=== PATIENT | male | born 1965 | race African-American/Black ===

== ENCOUNTER 2018-01-13 09:22 | Day surgery (SDC) | payer BC ==
[2018-01-13] MEDS ORDERED: GENTAMICIN 100 MG/100 ML BAG 100 MG/100 ML BAG IV ONE (10:43)
[2018-01-13] MEDS ORDERED: Ringers Lactate 1,000 ML IV ONE (10:43)
[2018-01-13] MEDS ORDERED: ONDANSETRON HCL 40 MG/20 ML VIAL ONE (11:57)
[2018-01-13] MEDS ORDERED: LIDOCAINE 2% MPF 5 ML VIAL ONE (11:57)
[2018-01-13] MEDS ORDERED: FENTANYL CITR 100 MCG/2 ML ONE (11:57)
[2018-01-13] MEDS ORDERED: MIDAZOLAM HCL 2 MG/2 ML INJ ONE (11:57)
[2018-01-13] MEDS ORDERED: PROPOFOL 200 MG/20 ML VIAL IV ONE (11:57)
--- NOTE | 2018-01-13 12:59 | EKG ---
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
[2018-01-13] MEDS ORDERED: TRAMADOL HCL 50 MG TAB ONE (14:05)
[2018-01-13] MEDS ORDERED: LABETALOL HCL 100 MG/20 ML ONE (15:10)
== END 2018-01-13 15:45 | disposition home or self-care (01) ==
LOC: OR 09:22
PROVIDERS: ATTEND Urology
PROC: 0TF4XZZ Fragmentation in Left Kidney Pelvis, External Approach (ICD-10-PCS; principal; 2018-01-13 12:45)
DX: N20.2 Calculus of kidney with calculus of ureter (principal); F17.200 Nicotine dependence, unspecified, uncomplicated; Z88.6 Allergy status to analgesic agent
CPT/HCPCS: 50590; 93005; J1580; J2250; J2405; J3010

== ENCOUNTER 2018-02-03 08:00 | Day surgery (SDC) | payer BC ==
[2018-02-03 08:54] LABS: Urine Appearance CLEAR; Urine Bilirubin NEGATIVE (NEG); Urine Blood NEGATIVE (NEG); Urine Color YELLOW; Urine Glucose NEGATIVE (NEG); Urine Microscopic Reflex NO UMIC; Urine Protein NEGATIVE (NEG); Urine Urobilinogen 0.2 mg/dL (0.2-1.0); Urine pH 5.5 (5.0-7.0)
[2018-02-03 08:57] LABS: Absolute Lymphocytes (CBC) 1.8 K/uL (0.7-4.9); Absolute Monocytes 0.5 K/uL (0.1-1.3); Absolute Neutrophil 4.1 K/uL (1.8-8.0); Eosinophils % 2.7 % (0-4.4); Lymphocytes % 26.7 % (15.3-44.8); MCV 87.9 fL (80-100); MPV 8.5 fL (7.6-11.3); RBC Red Blood Cell Count 4.89 M/uL (4.33-5.43)
[2018-02-03] MEDS ORDERED: Ringers Lactate 1,000 ML IV ONE (08:59)
[2018-02-03 09:00] LABS: Protime INR 0.97
--- NOTE | 2018-02-03 09:04 | RAD REPORT ---
EXAM DESCRIPTION: RAD - Chest Pa And Lat (2 Views) - 02/03/2018 8:55 am CLINICAL HISTORY: Preop for surgery Chest pain. COMPARISON: Abdomen 1 View (KUB) dated 01/29/2018; Abdomen 1 View (KUB) dated 01/12/2018; Chest Pa An d Lat (2 Views) dated 01/12/2018 FINDINGS: The lungs are clear. The heart is normal in size. No displaced fractures. IMPRESSION: No acute or concerning finding suspected.
--- NOTE | 2018-02-03 09:09 | RAD REPORT ---
EXAM DESCRIPTION: RAD - Abdomen 1 View (KUB) - 02/03/2018 9:01 am CLINICAL HISTORY: Preop for surgery Pain COMPARISON: Abdomen 1 View (KUB) dated 01/29/2018; Abdomen 1 View (KUB) dated 01/12/2018 FINDINGS: The bowel gas pattern is non-obstructive. No evidence of free air or pneumatosis. Small ro unded calculus projecting to the left of the L4-5 level appears unchanged.
[2018-02-03] MEDS: GENTAMICIN 100 MG/100 ML BAG 100 MG/100 ML BAG IV ONE ×2 (09:33→10:37)
[2018-02-03 09:37] LABS: BUN Blood Urea Nitrogen 15 mg/dL (7-18); Bicarbonate 30 mmol/L (21-32); Glucose Level 104 mg/dL (74-106); Phosphorus 4.2 mg/dL (2.5-4.9); Potassium 4.5 mmol/L (3.5-5.1); Sodium Level 139 mmol/L (136-145); Uric Acid 6.5 mg/dL (3.5-7.2)
[2018-02-03] MEDS ORDERED: MIDAZOLAM HCL 2 MG/2 ML INJ ONE (10:47)
[2018-02-03] MEDS ORDERED: LIDOCAINE 2% MPF 5 ML VIAL ONE (10:47)
[2018-02-03] MEDS ORDERED: FENTANYL CITR 100 MCG/2 ML ONE (10:47)
[2018-02-03] MEDS ORDERED: ONDANSETRON 4 MG/2 ML VIAL ONE (10:47)
[2018-02-03] MEDS ORDERED: PROPOFOL 200 MG/20 ML VIAL IV ONE (10:50)
--- NOTE | 2018-02-03 12:05 | RAD REPORT ---
EXAM DESCRIPTION: RAD - Urethrocystogrphy Retrograde - 02/03/2018 11:59 am CLINICAL HISTORY: STENT COMPARISON: Abdomen 1 View (KUB) dated 02/03/2018 FINDINGS: Fluoroscopic imaging of the abdomen is submitted as part of a left-sided stone removal and stent placement. Details of the procedure are not available. Total fluoro time: 3 minutes and 26 seconds.
--- NOTE | 2018-02-03 12:10 | EKG ---
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
[2018-02-03] MEDS ORDERED: TRAMADOL HCL 50 MG TAB ONE (13:22)
== END 2018-02-03 14:25 | disposition home or self-care (01) ==
LOC: OR 08:00
PROVIDERS: ATTEND Urology
PROC: 0T768DZ Dilation of Right Ureter with Intraluminal Device, Via Natural or Artificial Opening Endoscopic (ICD-10-PCS; 2018-02-03)
PROC: 0TC68ZZ Extirpation of Matter from Right Ureter, Via Natural or Artificial Opening Endoscopic (ICD-10-PCS; 2018-02-03)
PROC: 0TF68ZZ Fragmentation in Right Ureter, Via Natural or Artificial Opening Endoscopic (ICD-10-PCS; principal; 2018-02-03 11:00)
DX: N20.2 Calculus of kidney with calculus of ureter (principal); I10 Essential (primary) hypertension; F17.200 Nicotine dependence, unspecified, uncomplicated; Z88.6 Allergy status to analgesic agent
CPT/HCPCS: 36415; 51610; 71046; 74018; 74450; 80048; 81003; 82330; 82360; 84100; 84550; 85025; 85610; 85730; 87086; 87088; 88300; 93005; J1580; J2250; J2405; J3010; Q9967